=== PATIENT | female | born 1990 | race Caucasian/White ===

== ENCOUNTER 2016-09-09 11:40 | Emergency (ER) | payer BC ==
--- NOTE | ~2016-09-09 | ER ---
PATIENT'S NAME: NYLA CANTU [facility] AGE: 26 Y [address] ROOM: [place] [id number] LOCATION: [facility] ADMIT DATE: 09/09/2016 ER/Outpatient Report DISCHARGE DATE: 09/09/2016 FAMILY PHYSICIAN: PHYSICIAN, NO ATTENDING PHYSICIAN: Chris Raines Time of Arrival: 1145 hours. Time of Evaluation: 1153 hours. CHIEF COMPLAINT: Epigastric pain. HISTORY OF PRESENT ILLNESS: The patient reports she has had upper abdominal pain for the past 3 days. She has been nauseated, but no vomiting. Pain gets worse when she eats. Last ate at midnight. Denies having a fever. Denies having any pain or frequency with urination. Last bowel movement was on 09/08/2016. Describes the pain is a constant pain that has a stabbing sensation now and then. ALLERGIES: LATEX. MEDICATIONS: None. PAST MEDICAL HISTORY: Benign. She has been seen at [facility], and they have done lab work recently for a possible ovarian cyst. PAST SURGICAL HISTORY: Ear surgery as 1-year-old. [employer] HISTORY: Last menstrual period was 2 weeks ago. SOCIAL HISTORY: Smokes half pack per day. Smokes marijuana on a daily basis. Drinks alcohol 2 to 6 ounces daily. REVIEW OF SYSTEMS: All negative other than those mentioned in the HPI. PHYSICAL EXAMINATION: VITAL SIGNS: She weighs 56.9 kg, blood pressure is 118/80, pulse is 78, respirations 20, temperature of 97.7, O2 saturations 98% on room air. PATIENT'S NAME: NYLA CANTU [facility] AGE: 26 Y [address] ROOM: [place] [id number] LOCATION: [facility] ADMIT DATE: 09/09/2016 ER/Outpatient Report DISCHARGE DATE: 09/09/2016 FAMILY PHYSICIAN: PHYSICIAN, NO ATTENDING PHYSICIAN: Chris Raines GENERAL: She is awake, alert, and oriented x4. SKIN: [place], warm, and dry. RESPIRATIONS: Even and nonlabored. Lung sounds are clear throughout. HEART: Regular rate and rhythm. ABDOMEN: Soft, nondistended. Bowel sounds are present. LABORATORY DATA AND X-RAYS: Lab work was drawn. CBC shows a white count of 12.8, hemoglobin 14.1, hematocrit of 41.8. Chem panel shows elevated AST of 197, ALT of 92, amylase was 22 with a lipase of 108. H. pylori is negative. EMERGENCY DEPARTMENT COURSE: The patient was given Zofran 4 mg ODT and gastric cocktail 30 mL p.o. She states that it did take off the sharpness of the pain and she is feeling better. IMPRESSION: 1. Epigastric pain. 2. Gastric reflux. PLAN: Home, rest, fluids. Avoid alcohol. I did discuss with her liver enzymes being elevated that she needed to stop drinking alcohol. Prescription was written for omeprazole. She can have Tylenol or ibuprofen as needed. Follow up with the primary provider if symptoms persist or worsen. She verbalized understanding. LAZARO SINGH APRN FOR MD JOANNA VILLALTA/luna /[id number] d: 09/09/162025 t: 09/30/163, OUTPATIENT REPORT
[2016-09-09 12:26] LABS: BASOPHIL # 0.1 K/uL (0.0-0.2); BASOPHIL % 0.4 %; EOSINOPHIL # 0.1 K/uL (0.0-0.5); EOSINOPHIL % 0.9 %; HEMATOCRIT 41.8 % (33.0-46.0); HEMOGLOBIN 14.1 g/dL (11.0-15.0); IMMATURE GRANULOCYTE % 0.2 %; LYMPHOCYTE # 1.9 K/uL (0.8-4.0); LYMPHOCYTE % 14.7 %; MCH 30.8 pg (27.0-34.0); MCHC 33.7 gm/dL (32.0-36.5); MCV 91.3 fl (83.0-98.0); MONOCYTE # 1.1 K/uL (0.0-1.0); MONOCYTE % 8.3 %; MPV 9.1 fl (9.4-12.4); NEUTROPHIL # (ANC) 9.7 K/uL (1.8-7.8); NEUTROPHIL % 75.5 %; NRBC % 0 /100WBC (0-0.00); PLATELET COUNT 266 K/uL (150-450); RBC 4.58 M/uL (3.50-5.00); RDW-CV 14.2 % (11.9-14.6); WBC 12.8 K/uL (4.0-11.0)
[2016-09-09 12:51] LABS: ALBUMIN 3.6 gm/dL (3.5-5.0); ALK PHOS 59 IU/L (33-138); ALT 92 IU/L (12-78); ANION GAP 11.1 (10.0-19.0); AST 197 IU/L (10-40); BLOOD UREA NITROGEN 8 mg/dL (6-24); CALCIUM 8.6 mg/dL (8.5-10.5); CHLORIDE 110 mMol/L (96-110); CO2 24 mMol/L (22-32); CREATININE 0.6 mg/dL (0.5-1.1); ESTIMATED GFR (MDRD EQUATION) > 60; POTASSIUM 4.1 mMol/L (3.7-5.1); SODIUM 141 mMol/L (135-145); TOTAL BILIRUBIN 0.5 mg/dL (0.0-1.5)
== END 2016-09-09 13:45 | disposition disaster alternative care site (69) ==
LOC: GMED 11:40
PROVIDERS: Nurse Practitioner Family
DX: K21.9 Gastro-esophageal reflux disease without esophagitis (principal); F17.210 Nicotine dependence, cigarettes, uncomplicated; F12.20 Cannabis dependence, uncomplicated; Z98.890 Other specified postprocedural states; Z91.040 Latex allergy status